=== PATIENT | female | born 1990 | race Hispanic/Latino ===

== ENCOUNTER 2019-11-21 07:18 | Day surgery (SDC) | payer OTHER ==
[~2019-11-21] VITALS: Ht 162.6 cm; Wt 82.9 kg
[~2019-11-21 07:18] MED LIST: LR 1,000 ML IV ONE
[2019-11-21] MEDS ORDERED: EPINEPHrine INJ 1 MG/ML 1ML VIAL As Ordered ONE (09:16)
[2019-11-21] MEDS ORDERED: BACITRACIN PWD 50,000 UNITS VIAL As Ordered ONE (09:16)
[2019-11-21] MEDS ORDERED: LIDOCAINE 1% MDV 20ML VIAL As Ordered ONE (09:16)
[2019-11-21] MEDS ORDERED: BUPIVACAINE LIPOSOME/PF 1.3% 20ML VIAL (13.3MG/ML)(EXPAREL)(C9290 PER1MG) As Ordered ONE (09:16)
[2019-11-21] MEDS ORDERED: ceFAZolin 2 GM/D5W 50 ML IV BAG (J0690 PER 500MG) As Ordered ONE (09:30)
[2019-11-21] MEDS ORDERED: dexameTHASONE 4 MG/ML 1ML VIAL (J1100) As Ordered ONE (09:53)
[2019-11-21] MEDS ORDERED: MIDAZOLAM INJ 2 MG/2 ML VIAL (J2250) As Ordered ONE (09:53)
[2019-11-21] MEDS ORDERED: ONDANSETRON 4MG/2ML VIAL (J2405) As Ordered ONE ×2 (09:53→13:46)
[2019-11-21] MEDS ORDERED: fentaNYL 100 MCG/2 ML INJECTION (J3010) As Ordered ONE (09:53)
[2019-11-21] MEDS ORDERED: HYDROmorphone HCL 2 MG/ML 1ML VIAL (J1170) As Ordered ONE (09:53)
[2019-11-21] MEDS ORDERED: LIDOCAINE 2% INJ 100 MG/5 ML SDV (FOR ANES.) As Ordered ONE (09:53)
[2019-11-21] MEDS ORDERED: propofoL 200 MG/20 ML VIAL As Ordered ONE (09:53)
[2019-11-21] MEDS ORDERED: ROCURONIUM BROMIDE 50 MG/5 ML VIAL As Ordered ONE ×2 (09:53→10:34)
[2019-11-21] MEDS ORDERED: HEPARIN SOD (PORCINE) 5000 UNITS/ML VIAL (J1644 PER 1000UNITS) As Ordered ONE (09:59)
[2019-11-21] MEDS ORDERED: ceFAZolin SOD 2 GM in IV 1 EA IV ONE (10:00)
[2019-11-21] MEDS ORDERED: ACETAMINOPHEN 1000MG 100ML IV BTL (OFIRMEV) (J0131 PER 10MG) As Ordered ONE (10:14)
[2019-11-21] MEDS ORDERED: SUGAMMADEX SODIUM 500 MG/5 ML VIAL (BRIDION) As Ordered ONE (10:47)
--- NOTE | 2019-11-21 13:42 | POST-OPPD ---
Postoperative Procedure Note Date Of Procedure: Nov 21, 2019 PREOPERATIVE DIAGNOSIS: Bilateral breast hypertrophy POSTOPERATIVE DIAGNOSIS: same FINDINGS: Large breasts PROCEDURE: Bilateral breast reduction SURGEON: Dr Braun ANESTHESIA: General SPECIMENS: Right breast 482 gm, Left breast 423 gm ESTIMATED BLOOD LOSS: 100cc REPLACED: none DRAINS: 10 mm KELIN x 2 COMPLICATIONS: none POSTOPERATIVE CONDITION: stable PAVAN BRAUN DO Nov 21, 2019 13:42
[2019-11-21] MEDS ORDERED: ONDANSETRON 4MG/2ML VIAL (J2405) IV PRN ×2 (13:45→14:00)
[2019-11-21] MEDS ORDERED: ACETAMINOPHEN TAB 650MG DOSE (2X325MG) PO PRN (13:45)
[2019-11-21] MEDS ORDERED: KETOROLAC TROMETHAMINE 10 MG TAB PO PRN (13:45)
[2019-11-21] MEDS ORDERED: fentaNYL 100 MCG/2 ML INJECTION (J3010) IV PRN (14:00)
[2019-11-21] MEDS: LR 1,000 ML IV SCH (14:00)
[2019-11-21] MEDS ORDERED: oxyCODONE 5MG TAB PO PRN (14:00)
[2019-11-21] MEDS ORDERED: MEPERIDINE INJ 25 MG/ML VIAL (J2175) IV PRN (14:00)
[2019-11-21] MEDS ORDERED: LR 1,000 ML IV SCH (14:00)
--- NOTE | 2019-11-21 15:01 | ROOPDOC ---
[facility] Report Of Operation Report of Operation DATE OF PROCEDURE: 11/21/19 PREOPERATIVE DIAGNOSIS: Symptomatic macromastia. POSTOPERATIVE DIAGNOSIS: Symptomatic macromastia. PROCEDURE: Bilateral breast reduction. ATTENDING SURGEON: Nicole Braun DO ANESTHESIA: General. FINDINGS: Large breasts. SPECIMEN: Right breast 482 grams, left breast 423 grams. BLOOD LOSS: 100 mL. DRAIN: 10 mm Jose G-Ochoa x2. COMPLICATIONS: No complications. POST OP CONDITION: Stable. DISPOSITION: Recovery room. DESCRIPTION OF PROCEDURE: This is a 29-year-old female who has large breasts, which cause a patient significant upper back and neck pain. She has failed medical management with support bras and medications. The patient is a good candidate for surgical breast reduction. All the risks and benefits and alternatives discussed with the patient at [facility]. Risks associated with this procedure include but not limited to: bleeding, infection, delayed healing, damage of surrounding structures, asymmetry, tissue loss, nipple areolar loss/change of sensation, inability to breast feed, inacceptable cosmetic results, DVT, and PE. The day of surgery, she was marked according to Superior - medial pedicle pattern in the upright position in preoperative holding area. Her measurements from sternal notch on Left side is 28cm and on the Right side it is 31 cm from sternal notch and her new position for the nipple areola complex is going to be at 21 cm bilaterally. After the markings an informed consent was confirmed. The patient was brought into the operating room, placed in supine position. Preoperative antibiotics were given. Sequential pneumatic stockings were placed on her lower calves. General anesthesia was induced. She was prepped and draped in the usual sterile fashion. We started our procedure on the right side. We outlined the nipple areolar complex at 42 mm in diameter. Incision was carried out around the nipple areolar complex and along the markings according the superior -medial pedicle pattern. PEAK cautery and electrocautery were used for resection of the inferolateral portion of the breast. Hemostasis was obtained using electrocautery as well. Specimen sent off to be weight. After that part of procedure completed, the wo und was irrigated with Bacitracin saline solution. The pedicle was de- epithelialized using Lofton scissors. Suction assisted lipectomy performed using 4 mm probe to eliminate the fat pad anterior to axilla. Total 30cc. Exparel was infiltrated in breast parenchyma and Pectoralis major totaling 7 ml. Then, the pedicle was turned superiorly to its new location. The breast mound was re created. #0 Vicryl sutures were used to secure the mound. The side pillars were closed with interrupted #3-0 Monocryl sutures. The vertical limb is 5 cm. Inferior excess tissue was measured and resected creating the inferior horizontal scar. A 10 mm Jose G-Ochoa drain was placed through the lateral portion of that incision and sutured in place with #3-0 Monocryl suture. Horizontal scar was closed with interrupted #3-0 Monocryl sutures. Nipple areolar complex was brought out into view through the new opening. We used interrupted #3-0 Monocryl, #4-0 Monocryl sutures to close it in layers and a #5- 0 Plain Gut running stitch for dermis. Total dissection on the right side was 482 grams. Then, we turned our attention to the left side. A mirrored procedure was recreated. We outlined the nipple areolar complex at 42 mm in diameter. Incision was carried out around the nipple areolar complex and along the markings according the superior -medial pedicle pattern. PEAK cautery and electrocautery were used for resection of the inferolateral portion of the breast. Hemostasis was obtained using electrocautery as well. Specimen sent off to be weight. After that part of procedure completed, the wound was irrigated with Bacitracin saline solution. The pedicle was de-epi thelialized using Lofton scissors. Suction assisted lipectomy performed using 4 mm probe to eliminate the fat pad anterior to axilla. Total 30cc. Exparel was infiltrated in breast parenchyma and Pectoralis major totaling 7 ml. Then, the pedicle was turned superiorly to its new location. The breast mound was recreated. #0 Vicryl sutures were used to secure the mound. The side pillars were closed with interrupted #3-0 Monocryl sutures. The vertical limb is 5 cm. Inferior excess tissue was measured and resected creating the inferior horizontal scar. A 10 mm Jose G-Ochoa drain was placed through the lateral portion of that incision and sutured in place with #3-0 Monocryl suture. Horizontal scar was closed with interrupted #3-0 Monocryl sutures. Nipple areola r complex was brought out into view through the new opening. We used interrupted #3-0 Monocryl, #4-0 Monocryl sutures to close it in layers and a #5-0 Plain Gut running stitch for dermis. Total dissection on the right side was 423 grams. Additional 3 cc of Exparel infiltrated in each horizontal incision, totaling Exparel of 20 cc. Prineo dressing, Xeroform to the nipple areolar complex, bulky dressing and a surgical bra the patient was extubated in operating room without any difficulty, transferred to the recovery room in stable condition. NICOLE BRAUN DO Nov 21, 2019 15:01
[2019-11-21] MEDS ORDERED: oxyCODONE 5MG TAB As Ordered ONE (15:15)
[2019-11-21 15:45] VITALS: BP 133/71
[2019-11-21] MEDS: PERCOCET 5MG/325MG TAB PO PRN (16:01)
[2019-11-21 16:15] VITALS: BP 113/57
[2019-11-21] MEDS ORDERED: ceFAZolin SOD 1 GM in D5W MINI-BAG PLUS 50 ML IV ONE (17:00)
[2019-11-21 17:15] VITALS: BP 118/62
[2019-11-21] MEDS: PROMETHAZINE INJ 25 MG/ML VIAL (J2550) IV PRN (18:42)
[2019-11-21 20:00] VITALS: BP 102/44
[2019-11-22] MEDS ORDERED: ceFAZolin SOD 1 GM in D5W MINI-BAG PLUS 50 ML IV SCH (01:00)
[2019-11-22 01:02] VITALS: BP 87/39
[2019-11-22 01:50] VITALS: BP 108/62
[2019-11-22] MEDS: LR 1,000 ML IV SCH (03:20)
[2019-11-22 06:02] VITALS: BP 91/48
[2019-11-22] MEDS: PROMETHAZINE INJ 25 MG/ML VIAL (J2550) IV PRN (06:19)
[2019-11-22] MEDS: PERCOCET 5MG/325MG TAB PO PRN (06:19)
--- NOTE | 2019-11-22 08:37 | IPNPDOC ---
Subjective General Date Seen: Nov 22, 2019 Subject Chief Complaint/History The patient is a 29-year-old female admitted with a reason for visit of Bilateral Breast Hypertrophy. S/p BBR POD1. Doing well. Pain controlled with Percocet. Patient had episodes of nausea yesterday, better today. Tolerating diet. Current Medications Current Medications Current Medications Medications (Trade) Dose Ordered Sig/Elma Route PRN Reason Start Time Stop Time Status Last Admin Dose Admin Acetaminophen (Tylenol Tab) 650 mg Q6H PRN PO MILD PAIN (PS 1-4) 11/21/19 13:45 Cefazolin Sodium 1 gm/Dextrose 50 ml @ 100 mls/hr Q8H IV 11/22/19 01:00 11/22/19 01:29 DC 11/22/19 01:06 Fentanyl Citrate (Sublimaze) 25 mcg Q5MP PRN IV PAIN LEVEL 5-10 11/21/19 14:00 11/21/19 15:52 DC Ketorolac Tromethamine (ToRADol) 10 mg Q6HP PRN PO MODERATE PAIN (PS 5-7) 11/21/19 13:45 11/26/19 13:44 11/21/19 17:51 Lactated Ringer's 1,000 ml @ 75 mls/hr [id number] IV 11/21/19 14:00 Lactated Ringer's 1,000 ml @ 100 mls/hr Q10H IV 11/21/19 14:00 11/21/19 15:00 DC Meperidine HCl (Demerol) 12.5 mg Q5MP PRN IV SHIVERING 11/21/19 14:00 11/21/19 15:00 DC Ondansetron HCl (ZOFRAN INJection) 4 mg Q4H PRN IV NAUSEA OR VOMITING 11/21/19 13:45 11/21/19 16:00 Ondansetron HCl (ZOFRAN INJection) 4 mg Q4HP PRN IV NAUSEA OR VOMITING 11/21/19 14:00 11/21/19 15:00 DC 11/21/19 14:03 Oxycodone HCl (Roxicodone, Oxyir) 5 mg ASDIRECTED PRN PO PAIN LEVEL 1-4 11/21/19 14:00 11/21/19 15:00 DC 11/21/19 15:17 Oxycodone/ Acetaminophen (Percocet 5mg/ 325mg Tablet) 2 tab Q6HP PRN PO SEVERE PAIN (PS 8-10) 11/21/19 13:45 11/22/19 06:19 Promethazine HCl (PHENERGAN INJection) 12.5 mg Q6HP PRN IV NAUSEA 11/21/19 18:15 11/22/19 06:19 Allergies Coded Allergies: No Known Allergies (Unverified , 11/21/19) Objective Physical Examination Examination GENERAL APPEARANCE:Patient seen, laying in bed, awake, alert, and oriented. Comfortable, in no acute distress. SKIN: Warm and moist. BREAST: Right and left soft, non-tender incisions intact. KELIN drains: L15/R20 cc/24 hr. NAC: Viable, warm, symmetrical, mild post-op ecchymosis, no expanding hematoma. LUNGS: Clear to auscultation bilaterally. No wheezing appreciated. HEART: No chest wall abnormalities. Regular rate and rhythm with no murmurs appreciated. ABDOMEN: Abdomen is soft, non-tender, non-distended. Incision intact. EXTREMITIES: No edema identified. No calf tenderness. Vital Signs Vital Signs Date Time Temp Pulse Resp B/P (MAP) Pulse Ox O2 Delivery O2 Flow Rate FiO2 11/22/19 06:49 18 11/22/19 06:02 98.8 73 91/48 (62) 98 Room Air 11/21/19 14:08 2 I&Os I&O- Last 24 Hours up to 6 AM 11/22/19 06:00 Intake Total 3030 ml Output Total 37 ml Balance 2993 ml Impression S/p BBR Stable for discharge. Monitor KELIN output at home. Support bra. No heavy lifting. F/up plastic surgery Monday. Plan / VTE VTE Prophylaxis Ordered?: Yes PAVAN BRAUN DO Nov 22, 2019 08:37
[2019-11-22] MEDS ORDERED: ZOFR4TAB16 PO (08:41)
[2019-11-22] MEDS ORDERED: PERCOCET PO (08:41)
== END 2019-11-22 10:10 | disposition home or self-care (01) ==
LOC: M SDC 07:18 → M MS5PR 15:40 → M SDC 11-22 10:10
PROVIDERS: ATTEND Plastic Surgery Surgery of the Hand
DX: N62 Hypertrophy of breast (principal); M54.6 Pain in thoracic spine
CPT/HCPCS: 19318; 81025; 88300; 88305; C9290; J0131; J0690; J1100; J1170; J1644; J2250; J2405; J3010

== ENCOUNTER 2022-02-24 09:52 | Observation (INO) | payer OTHER, SELFPAY ==
[~2022-02-24] VITALS: Ht 165.1 cm; Wt 86.2 kg
[~2022-02-24 09:52] MED LIST changes: -LR 1,000 ML IV ONE; +PERCOCET PO; +ZOFR4TAB16 PO; +ceFAZolin SOD 2 GM in IV 1 EA IV ONE
[2022-02-24] MEDS ORDERED: ONDANSETRON 4MG/2ML VIAL As Ordered ONE ×2 (10:07→14:56)
[2022-02-24] MEDS ORDERED: dexameTHASONE 4 MG/ML 1ML VIAL (J1100 PER 1MG) As Ordered ONE (10:07)
[2022-02-24] MEDS ORDERED: LIDOCAINE 2% 100MG/5ML SDV (FOR ANES.) As Ordered ONE (10:07)
[2022-02-24] MEDS ORDERED: ROCURONIUM BROMIDE 50 MG/5 ML VIAL As Ordered ONE ×2 (10:07→10:55)
[2022-02-24] MEDS ORDERED: fentaNYL 250 MCG/5 ML INJECTION As Ordered ONE (10:07)
[2022-02-24] MEDS ORDERED: MIDAZOLAM INJ 2MG/2ML VIAL (J2250 PER 1MG) As Ordered ONE (10:07)
[2022-02-24] MEDS ORDERED: propofoL 200 MG/20 ML VIAL As Ordered ONE (10:07)
[2022-02-24 10:36] LABS: HEMATOCRIT 41.8 % (36.0-47.0); HEMOGLOBIN 14.1 g/dl (12.0-15.5); MEAN CORPUSCULAR HEMOGLOBIN 30.7 pg (27.0-33.0); MEAN CORPUSCULAR HGB CONC 33.7 g/dl (32.0-36.5); MEAN CORPUSCULAR VOLUME 91.1 fl (80.0-96.0); PLATELET COUNT, AUTOMATED 264 10^3/uL (150-450); RED BLOOD COUNT 4.59 10^6/uL (4.00-5.40); WHITE BLOOD COUNT 5.9 10^3/uL (4.0-10.0)
[2022-02-24] MEDS ORDERED: SCOPOLAMINE 1MG TRANSDERMAL PATCH TOP STA (10:48)
[2022-02-24] MEDS ORDERED: ePHEDrine SULFATE 25 MG/5 ML(5MG/ML) SYRINGE As Ordered ONE (10:51)
[2022-02-24 10:56] LABS: BLOOD UREA NITROGEN 12 MG/DL (7-18); CALCIUM LEVEL 9.5 MG/DL (8.5-10.1); CARBON DIOXIDE LEVEL 28 MEQ/L (21-32); CHLORIDE LEVEL 108 MEQ/L (98-107); CREATININE FOR GFR 0.98 MG/DL (0.55-1.30); GLOMERULAR FILTRATION RATE > 60.0 (>60); GLUCOSE, FASTING 92 MG/DL (70-100); POTASSIUM SERUM 4.1 MEQ/L (3.5-5.1); SODIUM LEVEL 140 MEQ/L (136-145)
[2022-02-24] MEDS ORDERED: LR 1,000 ML IV SCH ×2 (11:05→17:10)
[2022-02-24] MEDS ORDERED: EPINEPHrine INJ 1 MG/ML 1ML AMP As Ordered ONE (11:18)
[2022-02-24] MEDS ORDERED: LIDOCAINE 1% MDV 20ML VIAL As Ordered ONE (11:18)
[2022-02-24] MEDS ORDERED: ACETAMINOPHEN 1000MG 100ML IV BTL (OFIRMEV) (J0131 PER 10MG) As Ordered ONE (14:32)
[2022-02-24] MEDS ORDERED: PHENYLephrine 500MCG 5ML (100MCG/ML) SYRINGE As Ordered ONE (14:44)
[2022-02-24] MEDS ORDERED: HYDROmorphone HCL 2MG/ML 1ML VIAL As Ordered ONE (15:00)
[2022-02-24] MEDS ORDERED: SUGAMMADEX SODIUM 500 MG/5 ML VIAL (BRIDION) As Ordered ONE (15:00)
[2022-02-24] MEDS ORDERED: oxyCODONE 5MG TAB PO PRN (17:10)
[2022-02-24] MEDS ORDERED: ONDANSETRON 4MG/2ML VIAL IV PRN ×2 (17:10→17:30)
[2022-02-24] MEDS ORDERED: fentaNYL 100 MCG/2 ML INJECTION IV PRN (17:10)
[2022-02-24] MEDS ORDERED: MORPHINE 2 MG/ML 1ML VIAL IV PRN (17:10)
[2022-02-24] MEDS ORDERED: ACETAMINOPHEN TAB 650MG DOSE (2X325MG) PO PRN (17:30)
[2022-02-24 20:40] VITALS: BP 110/58
[2022-02-24 21:10] VITALS: BP 108/59
[2022-02-24 21:27] LABS: HEMATOCRIT 38.8 % (36.0-47.0); HEMOGLOBIN 12.9 g/dl (12.0-15.5); MEAN CORPUSCULAR HEMOGLOBIN 30.9 pg (27.0-33.0); MEAN CORPUSCULAR HGB CONC 33.2 g/dl (32.0-36.5); PLATELET COUNT, AUTOMATED 239 10^3/uL (150-450); RED BLOOD COUNT 4.17 10^6/uL (4.00-5.40); WHITE BLOOD COUNT 19.4 10^3/uL (4.0-10.0)
[2022-02-24] MEDS: traMADol 50 MG TAB PO PRN (21:29)
[2022-02-24 21:40] VITALS: BP 110/62
[2022-02-24] MEDS ORDERED: ceFAZolin SOD 1 GM in D5W MINI-BAG PLUS 50 ML IV ONE (22:00)
[2022-02-24 22:40] VITALS: BP 98/46
[2022-02-24] MEDS: LR 1,000 ML IV SCH (23:01)
[2022-02-24 23:40] VITALS: BP 109/66
[2022-02-25 00:40] VITALS: BP 111/62
[2022-02-25 02:00] VITALS: BP 111/63
[2022-02-25 06:00] VITALS: BP 111/52
[2022-02-25] MEDS ORDERED: TRAM50TA2 PO (09:34)
[2022-02-25 10:00] VITALS: BP 110/53
[2022-02-25] MEDS: traMADol 50 MG TAB PO PRN (10:00)
[2022-02-25] MEDS: LR 1,000 ML IV SCH (10:00)
== END 2022-02-25 13:10 | disposition home or self-care (01) ==
LOC: M SDC 09:52 → M MS5PR 09:53 → UNDOADMOB 21:14 → M MS5PR 21:14 → INTOOBSV 21:14
PROVIDERS: ADMIT Plastic Surgery Surgery of the Hand; ATTEND Plastic Surgery Surgery of the Hand
DX: L98.7 Excessive and redundant skin and subcutaneous tissue (principal)
CPT/HCPCS: 15877; 15879; 36415; 80048; 81025; 85027; 88300; 96365; 96375; J0131; J0171; J0690; J1100; J1170; J2250; J2370; J2405; J3010